=== PATIENT | female | born 1950 | race Caucasian/White ===

== ENCOUNTER 2017-02-04 08:30 | Day surgery (SDC) | payer MEDICARE ==
[~2017-02-04] VITALS: Ht 162.6 cm; Wt 60.8 kg
[~2017-02-04 08:30] MED LIST: ASPIRIN 81MG TA81 MG PO; CALCIUM600 M1 PO; ESTERIFIED ESTR PO; ESTRATEST; FLEXERIL10 MG PO; HYDROCODONE BIT1 T39 PO; IBU-8800 MG PO; KRILL OIL500 MG PO; MAG-OX 400MG T400 MG PO; METOCLOPRAMIDE H5 MG PO; ONDANSETRON4 M1 SL; RITE AID KRILL500 MG; SIMVASTATIN20 MG PO
--- NOTE | 2017-02-04 10:05 | Operative Note ---
Colonoscopy ([facility]) Procedure date: 02/04/17 Date of : 52 Procedure:Colonoscopy Colonoscopy with cold snare polypectomy Indications: Mrs. Vargas is a 66-year-old female who is here for follow-up screening/ surveillance colonoscopy. She had a normal colonoscopy in 2010. She had a jejunal partial small bowel obstruction in October 2015. She does state that her father and paternal grandmother had intussusception of the small bowel with small bowel obstruction. The patient does state that her maternal grandmother had colon cancer in her 50s. The patient reports no abdominal pain, weight loss, change in her bowel habits or rectal bleeding. Performing Provider: Vijay Murcia MD Referrring Provider: Lauri Swift M.D. Sedation: MAC sedation Procedure: Prior to the procedure, a history and physical exam was performed, and patient medications and allergies were reviewed. The risks and benefits of the procedure and the sedation options and risks were discussed with the patient. All questions were answered and informed consent was obtained. Patient identification and proposed procedure were verified by the physician and the nurse. The patient was placed in a left lateral decubitus position. Throughout the procedure, the patient's blood pressure, pulse, and oxygen saturations were monitored continuously. Findings: On digital rectal examination there was normal rectal tone. There were no external hemorrhoids. The colonoscope was introduced through the anal canal to the rectum and advanced to the cecum. The ileocecal valve and appendiceal orifice were identified. The scope was advanced a short distance into the ileum which appeared grossly normal. The scope was then withdrawn into the colon. The cecum, ascending, transverse, descending, sigmoid and rectum were grossly normal. There was a single 5 mm polyp in the sigmoid colon removed via cold snare polypectomy. Upon retroflexion within the rectum there were grade 1 internal hemorrhoids. Impressions: 1. Diminutive sigmoid colon polyp 2. Grade 1 internal hemorrhoids Recommendations: I will follow up the polyp histology and recommend repeat screening/surveillance colonoscopy again in 5 years based upon her family history. Complications: None EBL (ml): 0 at 1007
[2017-02-04 11:23] VITALS: BP 139/74
== END 2017-02-04 11:00 | disposition home or self-care (01) ==
LOC: SDC 08:30
PROVIDERS: Internal Medicine Gastroenterology
PROC: 0DBN8ZX Excision of Sigmoid Colon, Via Natural or Artificial Opening Endoscopic, Diagnostic (ICD-10-PCS; principal; 2017-02-04 09:30)
DX: Z12.11 Encounter for screening for malignant neoplasm of colon (principal); D12.5 Benign neoplasm of sigmoid colon; K64.0 First degree hemorrhoids; Z90.49 Acquired absence of other specified parts of digestive tract; Z79.899 Other long term (current) drug therapy; Z80.0 Family history of malignant neoplasm of digestive organs

== ENCOUNTER → 2017-02-11 | Outpatient (CLI) | payer MEDICARE ==
--- NOTE | 2017-02-13 13:04 | RADIOLOGY REPORT PS360 ---
DIG MAMM-SCREEN FANNY W/CAD CAD Screening ORDERING PHYSICIAN : Lauri Swift MD PATIENT AGE: 66 years GENDER: Female COMPARISON: Previous mammograms: January 2016, 2012, December 2011 and 2010 INDICATION: Routine screening Estratest. No new complaints previous cyst aspiration left breast. Family history. Sister with breast cancer age 38. Maternal grandmother age 40s TECHNIQUE: Standard CC and MLO images were obtained. R2 CAD reviewed. Additional nipple profile MLO left breast FINDINGS: Moderate breast density with moderate scattered fibroglandular elements bilateral most evident towards superior breast . No dominant mass nor suspicious calcifications or significant new findings either breast. No significant interval change. Again note Mild asymmetry is. Scattered Areas of slightly denser breast bilaterally appear to be similar to previous studies with no significant interval change in pattern. However would encourage follow-up in one year for ongoing evaluation in this patient . IMPRESSION: Stable mammogram with No significant interval change Follow-up in one year recommended and should be encouraged BI-RADS CATEGORY: 2_Benign RECOMMENDED FOLLOWUP: 12M 12 MONTH FOLLOW-UP (A letter has been sent to the patient regarding results of the study.)
== END ==
LOC: RAD 09:00
DX: Z12.31 Encounter for screening mammogram for malignant neoplasm of breast (principal)
CPT/HCPCS: G0202